=== PATIENT | female | born 1965 ===

== ENCOUNTER 2021-01-01 14:23 | Emergency (ER) | payer SELFPAY ==
[~2021-01-01] VITALS: Ht 165.1 cm; Wt 59.0 kg
[2021-01-01 14:44] VITALS: BP 118/47
== END 2021-01-01 15:15 | disposition left against medical advice (07) ==
LOC: EMS 14:29
DX: S50.312A Abrasion of left elbow, initial encounter (principal); S00.81XA Abrasion of other part of head, initial encounter; W01.0XXA Fall on same level from slipping, tripping and stumbling without subsequent striking against object, initial encounter; Y93.89 Activity, other specified; Y92.89 Other specified places as the place of occurrence of the external cause; Y99.8 Other external cause status; Z53.21 Procedure and treatment not carried out due to patient leaving prior to being seen by health care provider